=== PATIENT | female | born 1975 | race Caucasian/White ===

== ENCOUNTER 2018-01-26 11:16 | Emergency (ER) | payer OTHER ==
--- NOTE | 2018-01-26 12:12 | EDPHY ---
H & P Time Seen by Provider: 01/26/18 11:30 HPI/ROS: CHIEF COMPLAINT: Tongue tingling HISTORY OF PRESENT ILLNESS: 42-year-old female presents with tongue tingling after taking sulfa medication. She started taking Bactrim for urinary tract infection last evening. Approximately 30 min after the 1st dose, she developed a tingling sensation in her tongue. The symptoms quickly resolved and she was able to sleep well. This morning after a 2nd dose of Bactrim, she developed recurrent tingling under tongue, associated with itchiness in her throat. She took Benadryl 25 mg orally prior to arrival and currently feels better. No shortness of breath, dizziness or rash. REVIEW OF SYSTEMS: complete 10 point ROS negative except at noted in the HPI Past Medical/Surgical History: Depression Fibromyalgia Social History: Employed Smoking Status: Never smoked Physical Exam: General Appearance: Alert, no distress Eyes: Pupils equal and round, no periorbital swelling ENT, Mouth: Mucous membranes moist, no oral swelling Neck: Normal inspection, no stridor Respiratory: Lungs are clear to auscultation, no wheezing Cardiovascular: Regular rate and rhythm Neurological: A&O, nonfocal, normal gait Skin: No hives Extremities: No swelling Psychiatric: Mood and affect normal Constitutional: Initial Vital Signs Temperature (C) 36.8 C 01/26/18 11:22 Heart Rate 81 01/26/18 11:22 Respiratory Rate 16 01/26/18 11:22 Blood Pressure 156/100 H 01/26/18 11:22 O2 Sat (%) 98 01/26/18 11:22 O2 Delivery Mode Room Air Allergies/Adverse Reactions: IVONNE Inhibitors Allergy (Verified 01/26/18 11:31) acetaminophen [From Tylenol-Codeine] Allergy (Verified 01/26/18 11:20) avocado Allergy (Verified 01/26/18 11:20) codeine phosphate [From Tylenol-Codeine] Allergy (Verified 01/26/18 11:20) latex [Latex] Allergy (Verified 01/26/18 11:20) lisinopril Allergy (Verified 01/26/18 11:30) swoolen tongue Home Medications: Medication Instructions Recorded Bcp 08/31/10 Cephalexin [Keflex (*)] 500 mg PO BID #10 cap 01/26/18 Relpax 01/26/18 Sulfamethox/Tmp 800/160 mg 01/26/18 Medical Decision Making ED Course/Re-evaluation: This patient presents with a tongue tingling sensation and throat itchiness. Physical exam is normal. Clinical presentation consistent with allergic reaction to Bactrim. Patient declines prednisone in the emergency department, but accepts a prescription and will take the prednisone if symptoms worsen. Urinalysis reveals a urinary tract infection. Keflex prescribed. She has taken Keflex before without problem. A urine culture was sent. Differential Diagnosis: Differential diagnosis includes though it is not limited to laryngeal edema, bronchospasm, hypotension, angioedema. - Data Points Laboratory Results: 01/26/18 11:40 Urine Color YELLOW Urine Appearance CLEAR Urine pH 7.0 (5.0-7.5) Ur Specific [place] 1.010 (1.002-1.030) Urine Protein NEGATIVE (NEGATIVE) Urine Ketones NEGATIVE (NEGATIVE) Urine Blood TRACE H (NEGATIVE) Urine Nitrate NEGATIVE (NEGATIVE) Urine Bilirubin NEGATIVE (NEGATIVE) Urine Urobilinogen 0.2 EU EU (0.2-1.0) Ur Leukocyte Esterase TRACE H (NEGATIVE) Urine RBC 10-15 /hpf H /hpf (0-3) Urine WBC 25-50 /hpf H /hpf (0-3) Ur Epithelial Cells 1+ /lpf /lpf (NONE-1+) Ur Renal Epithelial Cell 1+ /hpf H /hpf (NONE SEEN) Urine Mucus 1+ /lpf /lpf (NONE-1+) Urine Glucose NEGATIVE (NEGATIVE) Departure - Departure Disposition: Home, Routine, Self-Care Clinical Impression: Allergic reaction Qualifiers: Encounter type: initial encounter Qualified Code(s): T78.40XA - Allergy, unspecified, initial encounter Urinary tract infection Qualifiers: Urinary tract infection type: acute cystitis Hematuria presence: without hematuria Qualified Code(s): N30.00 - Acute cystitis without hematuria Allergic reaction caused by a drug Qualifiers: Encounter type: initial encounter Qualified Code(s): T78.40XA - Allergy, unspecified, initial encounter Condition: Good Instructions: Urinary Tract Infection in Women (ED), Antibiotic Medication Allergy (ED) Additional Instructions: You are allergic to sulfa. Please list this medication as an allergy. Take Benadryl 25 mg 3 times daily for 2 days. Take prednisone as prescribed. Start Keflex this evening. Referrals: Kymberly Slater MD [Primary Care Provider] - As per Instructions Prescriptions: Cephalexin [Keflex (*)] 500 mg PO BID #10 cap
[2018-01-26 12:37] VITALS: BP 130/85
== END 2018-01-26 12:35 | disposition home or self-care (01) ==
LOC: CED 11:16
DX: N30.00 Acute cystitis without hematuria (principal); T37.0X5A Adverse effect of sulfonamides, initial encounter; B96.89 Other specified bacterial agents as the cause of diseases classified elsewhere; Z91.040 Latex allergy status
CPT/HCPCS: 81003-PO; 81015-PO

== ENCOUNTER → 2018-11-27 | Outpatient (CLI) | payer OTHER | LOC: FIMAGING 08:25 | PROVIDERS: ATTEND Family Medicine | DX: Z12.31 Encounter for screening mammogram for malignant neoplasm of breast (principal) ==